=== PATIENT | male | born 1950 | race Caucasian/White ===

== ENCOUNTER → 2017-06-21 | Outpatient (CLI) | payer BC, OTHER ==
[~2017-06-21] MED LIST: AMBIEN 5 MG TABL5 M1 OR; CARBIDOPA/LEVO1 TAB OR; CENTRUM TABLET1 TAB OR; CLARINEX-D 241 EACH OR; COLACE100 MG PO; PERCOCET 5-3251 EACH PO; PRINIVIL10 MG OR; SIMVASTATIN10 MG OR
== END ==
LOC: MRI 06-14 11:52
DX: G11.9 Hereditary ataxia, unspecified (principal); M62.81 Muscle weakness (generalized); M62.838 Other muscle spasm; R93.6 Abnormal findings on diagnostic imaging of limbs

== ENCOUNTER → 2017-06-27 | Outpatient (CLI) | payer OTHER | LOC: PUL 14:02 | DX: G70.00 Myasthenia gravis without (acute) exacerbation (principal) ==

== ENCOUNTER 2018-08-07 05:26 | Inpatient (IN) | payer OTHER ==
[2018-07-25 12:54] LABS: URINE BILIRUBIN NEGATIVE (Negative); URINE BLOOD NEGATIVE (Negative); URINE CLARITY SL CLOUDY; URINE COLOR YELLOW; URINE GLUCOSE-RANDOM* NEGATIVE (Negative); URINE KETONES NEGATIVE (Negative); URINE LEUKOCYTES-REFLEX NEGATIVE (Negative); URINE NITRITE-REFLEX NEGATIVE (Negative); URINE PROTEIN (DIPSTICK) NEGATIVE (Negative)
[2018-07-25 12:57] LABS: HEMATOCRIT 37.8 % (42.0-52.0); HEMOGLOBIN 12.6 gm/dL (14.0-18.0); MCH 28.1 pg (26.0-34.0); MCHC 33.3 g/dL (28.0-37.0); MCV 84.6 fL (80.0-100.0); RBC 4.47 mil/uL (4.50-6.00); RDW 13.4 % (10.5-14.5); WBC 7.1 thou/uL (4.0-11.0)
[2018-07-25 13:14] LABS: ALBUMIN 3.6 g/dL (3.4-5.0); CALCIUM 9.7 mg/dL (8.5-10.1); CREATININE 0.8 mg/dL (0.7-1.3); POTASSIUM 3.6 mmol/L (3.5-5.1)
[2018-07-25 13:15] LABS: PROTIME 9.4 Seconds (9.3-11.4)
[2018-07-25 22:06] LABS: GLYCOHEMOGLOBIN (HGB A1C) 6.5 % (4.8-5.6)
[~2018-08-07] VITALS: Ht 170.2 cm; Wt 77.6 kg
[2018-08-07] VITALS (7 sets, daily range): BP systolic 120–137; BP diastolic 67–82
--- NOTE | ~2018-08-07 | O ---
[facility] [place] [address] OPERATIVE REPORT Name: FRANCJOSE A Owens AMADA Room #: 150-6 ADM IN M.R.#: [id number] Admission: 08/07/18 Attend Phys: Arnold Carroll MD Discharge: Date of : 54 Report #: [id number] THIS REPORT FOR: //name// CC: Álvaro Carroll DATE OF SERVICE: 08/07/2018 PREOPERATIVE DIAGNOSIS: Right knee osteoarthritis. POSTOPERATIVE DIAGNOSIS: Right knee osteoarthritis. PROCEDURE: Right total knee arthroplasty with Navio robotic assistance. SURGEON: Arnold Carroll MD. PASTA PRESS OPERATOR: Deedee Murrell PA-C. INDICATIONS FOR PASTA PRESS OPERATOR: Throughout the case, extensive retraction and manipulation of the knee was required. This was afforded to me by my assignment desk assistant. ANESTHESIA: LMA with an adductor canal block. IMPLANTS: Urena and Nephew size 6 Legion cobalt chrome posterior stabilized femur, size 5 tibia, size 9 polyethylene and size 32 patella. TOURNIQUET TIME: 63 minutes. ESTIMATED BLOOD LOSS: 25 mL. COMPLICATIONS: None. SPECIMEN: None. CONDITION UPON LEAVING THE OPERATING ROOM: Stable. INDICATION FOR PROCEDURE: The patient is a 68-year-old gentleman with severe right knee osteoarthritis who failed conservative measures for this, and after discussion with him, he elected for right total knee arthroplasty. DESCRIPTION OF PROCEDURE: Risks, benefits, alternatives, complications were discussed in detail with the patient including but not limited to risk of anesthesia, risk of damage to nerves, arteries, blood vessels, risk for infection, bleeding, risk for continued knee pain and need for reoperation. Informed consent was obtained from the patient. Right knee was appropriately marked in the preoperative holding area. IV Ancef was given for preoperative [address] [address] OPERATIVE REPORT Name: FRANCJOSE A F [facility] Room #: 150-6 [facility] IN .R.#: [id number] Admission: 08/07/18 Attend Phys: Arnold Carroll MD Discharge: Date of : 54 Report #: [id number] antibiotics. Adductor canal block was placed by Anesthesia, brought to the operating room and placed in the supine position on the operating room table. LMA anesthesia was induced without complication. Tourniquet was placed on the right thigh. Right lower extremity was prepped and draped in normal sterile fashion. Timeout was performed properly identifying the patient and procedure as well as the instrumentation and implants. All in the operating room were in agreement. Right lower extremity was exsanguinated, tourniquet was inflated. Tourniquet time was 63 minutes. Standard midline approach to knee was made with 10 blade through the skin. Dissection was taken down sharply to the fascia and deep flaps were developed medially and laterally. Fresh 10 blade was used to make a medial parapatellar arthrotomy and the knee was inspected. There was severe tricompartmental osteoarthritis. ACL and PCL were removed sharply. Osteophytes were removed from the femur. Reference pins were then placed in the femur, the tibia and the knee was then mapped digitally using a Navio robotic assistance. Intraoperative plan was made, and we sized to a size 6 for the femur and a size 5 for the tibia after acceptance of the intraoperative plan. The distal femoral cut was then made using the Navio robotic bur. After this, the size 6, 4-in-1 cutting block was placed. Anterior, posterior and chamfer cuts were made on the femur. The knee was then flexed, and the tibial resection was made using Navio robotic assistance, we placed the tibial resection guide. After removal of the tibial resection, medial osteophytes from the tibia were removed. Flexion and extension gaps were checked and found to have good balance in flexion and extension both medially and laterally. Tibia was sized, found to be a size 5. Size 5 tibial trial was pinned in place, size 6 femoral trial was placed and the box cut was made. I then trialed with a size 9 polyethylene. Knee was taken through range of motion, found to be stable, found to have good balance in flexion and extension both manually as well as digitally cross referencing the Navio assistance. After this, 9 mm was taken off the posterior surface of the patella and a size 32 patellar trial button was placed. Knee was taken through range of motion, found to be stable, found to have good patellar tracking. After this, trial components were removed. Bony ends were thoroughly irrigated with normal saline. A final size 5 tibia, size 6 cobalt chrome posterior stabilized femur and a size 32 patella were cemented in place using standard cementation techniques. While the cement cured, a periarticular injection consisting of morphine, ropivacaine, epinephrine and Toradol was placed around the knee joint capsule. After the cement cured, the tourniquet was deflated. Hemostasis was obtained with Bovie cautery. Final size 9 polyethylene was placed. A gram of vancomycin was placed deep in the joint. Fascia was closed with 0 Vicryl, skin was closed with 2-0 Vicryl, 3-0 Monocryl. Dermabond and a NOEMI dressing were applied. The patient tolerated this procedure well and went to recovery room under care of Anesthesia postoperatively. By: [id number] Arnold Carroll MD /nt
[~2018-08-07 05:26] MED LIST changes: +AMARYL2 MG PO; +ATROVENT HFA14 GM INH; +HYDROCHLOROTHIA25 M2 PO; +IPRATROPIU0.2 MG/1 M NASAL; +LASIX 20 MG TAB20 MG PO; +METFORMIN HCL500 MG PO; +MOBIC15 MG PO; +PRILOSEC 20 MG20 MG PO; +REQUIP5 MG PO; -SIMVASTATIN10 MG OR; +SIMVASTATIN10 MG PO; +VITAMIN D-32000 UNIT PO; +VITAMINC500 PO
[2018-08-08 04:22] VITALS: BP 105/58
[2018-08-08 05:20] LABS: HEMATOCRIT 30.4 % (42.0-52.0); HEMOGLOBIN 10.2 gm/dL (14.0-18.0); MCH 28.3 pg (26.0-34.0); MCHC 33.4 g/dL (28.0-37.0); MCV 84.8 fL (80.0-100.0); RBC 3.59 mil/uL (4.50-6.00); RDW 13.6 % (10.5-14.5)
[2018-08-08 07:27] VITALS: BP 113/70
[2018-08-08 14:25] VITALS: BP 152/89
[2018-08-08] MEDS ORDERED: NEURONTIN 300300 M1 PO (15:13)
[2018-08-08] MEDS ORDERED: TRI-BUFFERED A325 M1 PO (15:13)
[2018-08-08 15:23] VITALS: BP 152/89
== END 2018-08-08 16:14 | disposition home or self-care (01) | DRG 470 ==
LOC: 4W 05:26 → TBA 05:26 → PRE 05:41 → 4W 14:06 → ENTRNSPT 08-08 15:55 → 4W 08-08 16:14
PROVIDERS: Orthopaedic Surgery
PROC: 0SRC0J9 Replacement of Right Knee Joint with Synthetic Substitute, Cemented, Open Approach (ICD-10-PCS; principal; 2018-08-07)
DX: M17.11 Unilateral primary osteoarthritis, right knee (principal); I10 Essential (primary) hypertension; E78.5 Hyperlipidemia, unspecified; Z96.652 Presence of left artificial knee joint; Z90.49 Acquired absence of other specified parts of digestive tract; Z87.442 Personal history of urinary calculi; Z98.1 Arthrodesis status
CPT/HCPCS: 10047; 50010; 50101; 50415; 50954; 51130; 51225; 51771; 53000; 53078; 53364; 54118; 56527; 56528; 57095; 57103; 57109; 57110; 57113; 57127; 62110; 62900; 64043; 70005